=== PATIENT | female | born 1990 | race Hispanic/Latino ===

== ENCOUNTER 2018-12-04 01:32 | Emergency (ER) | payer MEDICAID, OTHER ==
[2018-12-04 01:47] VITALS: BMI 32.5
[2018-12-04 01:50] VITALS: BP 142/88; PULSE 84; RESP 18; TEMP 98.1; O2SAT 100
--- NOTE | 2018-12-04 01:51 | ED PDOC ---
Arrival/HPI - General Time Seen by Provider: 12/04/18 01:44 Historian: Patient - History of Present Illness Narrative History of Present Illness (Text): 12/04/18 01:47 28 y/o female, no significant pmh, nkda, c/o lt. ear and throat pain x 1 week. Pt. stated that she recently had a cold about 1-2 weeks ago, started with the throat pain, associated with swallowing, no coughing, no shortness of breath or chest pain, no numbness or tingling, no diarrhea, no other medical or psychological complaints. Past Medical History - Provider Review Nursing Documentation Reviewed: Yes - Infectious Disease Hx of Infectious Diseases: None - Tetanus Immunization Tetanus Immunization: Unknown - Musculoskeletal/Rheumatological Hx Fractures: Yes (Hx of Growth plate fracture Left leg in childhood) - Gastrointestinal Hx Gall Bladder Disease: Yes - Psychiatric Hx Substance Use: No - Surgical History Hx Cholecystectomy: Yes - Suicidal Assessment Feels Threatened In Home Enviroment: No Family/Social History - Physician Review Nursing Documentation Reviewed: Yes Family/Social History: Unknown Family HX Smoking Status: Light Smoker < 10 Cigarettes Daily Hx Alcohol Use: Yes Hx Substance Use: No Hx Substance Use Treatment: No Allergies/Home Meds Allergies/Adverse Reactions: Allergies No Known Allergies Allergy (Verified 12/04/18 01:47) Home Medications: Home Meds Medication Instructions Recorded Confirmed Escitalopram [Lexapro] 20 mg PO DAILY 12/03/13 12/03/13 Review of Systems - Review of Systems Constitutional: absent: Fatigue, Fevers Eyes: absent: Vision Changes ENT: Sore Throat. absent: Hearing Changes Respiratory: absent: SOB, Cough Cardiovascular: absent: Chest Pain Gastrointestinal: absent: Abdominal Pain, Nausea, Vomiting Musculoskeletal: absent: Arthralgias, Back Pain Skin: absent: Rash, Pruritis Neurological: absent: Headache, Dizziness Psychiatric: absent: Anxiety, Depression, Suicidal Ideation Physical Exam - Systems Exam Head: Present: Atraumatic, Normocephalic Pupils: Present: PERRL Extroacular Muscles: Present: EOMI Conjunctiva: Present: Normal Ears: Present: NORMAL TM, Normal Canal. No: Erythema Mouth: Present: Moist Mucous Membranes, Normal Lips, Normal Tounge, Normal Teeth Pharnyx: Present: Normal. No: ERYTHEMA, EXUDATE, TONSILS ENLARGED, Peritonsilar Swelling, Uvular Deviation Nose (External): Present: Atraumatic. No: Abrasion, Contusion, Laceration, Lesions, Other Nose (Internal): Present: Normal Inspection, No Active Bleeding. No: Rhinorrhea , Septal Deviation, Septal Hematoma, Epistaxis Neck: Present: Normal Range of Motion, Lymphadenopathy (lt. anterior), Trachea Midline. No: Meningeal Signs, MIDLINE TENDERNESS, Paraspinal Tenderness Respiratory/Chest: Present: Clear to Auscultation, Good Air Exchange. No: Respiratory Distress, Accessory Muscle Use Cardiovascular: Present: Regular Rate and Rhythm, Normal S1, S2. No: Murmurs Abdomen: No: Tenderness, Distention, Peritoneal Signs Back: Present: Normal Inspection Upper Extremity: Present: Normal Inspection. No: Cyanosis, Edema Lower Extremity: Present: Normal Inspection. No: Edema Neurological: Present: GCS=15, CN II-XII Intact, Speech Normal, Motor Func Grossly Intact, Normal Cerebellar Funct, Gait Normal, Memory Normal Skin: Present: Warm, Dry, Normal Color. No: Rashes Lymphatic: Present: Cervical Adenopathy (lt. anterior) Psychiatric: Present: Alert, Oriented x 3, Normal Insight, Normal Concentration Medical Decision Making ED Course and Treatment: 12/04/18 01:49 -Urine hcg is negative. -Discharge home with augmentin, salt water gargling, soft food diet, follow up with your own pmd and ENT within 2 days, return to the ER for any new or worsening signs or symptoms. - PA / CANDY DIPPER / Resident Statement / has reviewed & agrees with the documentation as recorded. Disposition/Present on Arrival - Present on Arrival Any Indicators Present on Arrival: No History of DVT/PE: No History of Uncontrolled Diabetes: No Urinary Catheter: No History of Decub. Ulcer: No History Surgical Site Infection Following: None - Disposition Have Diagnosis and Disposition been Completed?: Yes Diagnosis: Cervical lymphadenopathy Disposition: HOME/ ROUTINE Disposition Time: 01:50 Patient Plan: Discharge Condition: GOOD Additional Instructions: -Discharge home with augmentin, salt water gargling, soft food diet, follow up with your own pmd and ENT within 2 days, return to the ER for any new or worsening signs or symptoms. Prescriptions: Amoxicillin/Clavulanate [Augmentin 875 MG-125 MG] 1 tab PO BID #20 tab Referrals: Rafy Anna DO [Staff Provider] - Follow up with primary [facility] at [facility] [place] [Outside] - Follow up with primary Forms: WORK NOTE
== END 2018-12-04 02:15 | disposition home or self-care (01) ==
LOC: ED 01:32
DX: R59.0 Localized enlarged lymph nodes (principal)